=== PATIENT | male | born 1990 | race Caucasian/White ===

== ENCOUNTER → 2017-12-04 | Outpatient (CLI) | payer OTHER ==
[2017-12-04 14:34] LABS: HEMATOCRIT 39.3 % (39.0-51.0); HEMOGLOBIN 13.6 GM/DL (13.0-17.0); MEAN CORPUSCULAR HEMOGLOBIN 29.8 PG (27.0-34.0); MEAN CORPUSCULAR HGB CONC 34.6 % (32.0-36.0); MEAN PLATELET VOLUME 7.6 FL (7.0-11.0); PLATELET COUNT 328 TH/MM3 (150-450); RED BLOOD COUNT 4.56 MIL/MM3 (4.50-5.90); RED CELL DISTRIBUTION WIDTH 12.9 % (11.6-17.2); REVIEW FLAG FINAL; WHITE BLOOD COUNT 7.7 TH/MM3 (4.0-11.0)
== END ==
LOC: CPRE 14:06
DX: Z01.812 Encounter for preprocedural laboratory examination (principal); J34.2 Deviated nasal septum; J34.3 Hypertrophy of nasal turbinates; J32.0 Chronic maxillary sinusitis; J32.1 Chronic frontal sinusitis; J32.2 Chronic ethmoidal sinusitis; J32.3 Chronic sphenoidal sinusitis
CPT/HCPCS: 36415; 85027

== ENCOUNTER → 2017-12-05 | Day surgery (SDC) | payer OTHER ==
--- NOTE | 2017-12-04 17:08 | MH ---
cc: Pipo Hermosillo MD DATE OF ADMISSION: 12/05/2017 REASON FOR ADMISSION: A 27-year-old gentleman with chronic sinusitis and nasal obstruction, for nasal sinus surgery. PAST MEDICAL HISTORY: Unremarkable. PAST SURGICAL HISTORY: Unremarkable. REVIEW OF SYSTEMS, FAMILY HISTORY and SOCIAL HISTORY: Unremarkable. PHYSICAL EXAMINATION: GENERAL: A well-appearing patient. No acute distress noted. HEENT: Exam reveals septal deviation, turbinate hypertrophy, mucopurulent secretions, polyposis. LUNGS: Clear. HEART: Regular rate and rhythm. ABDOMEN: Soft and nontender. EXTREMITIES: Without cyanosis, clubbing or edema. NEUROLOGIC: Alert, oriented, nonfocal neurologic exam. IMPRESSION: Patient with chronic sinusitis and nasal obstruction, for nasal sinus surgery. I have instructed him in the method of surgery and possible complications including anesthetic complication, cardiac difficulty pulmonary difficulty, stroke or even , the surgical complications of bleeding, infection, risk of injury to the orbit including blindness and diplopia, risk of injury to brain including CSF leak, meningitis, brain abscess or even , recurrent polyposis, nose bleed, septal perforation, decreased sense of smell, dry nose. The patient appeared to agree, except to understand the above-mentioned risks and benefits. In addition, no guarantees or warranties regarding outcome were given. We will therefore proceed with surgery. MD BRIANNA Alcantara/SB , 04:47 PM , 05:06 PM
[~2017-12-05] VITALS: Ht 170.2 cm; Wt 70.4 kg
[~2017-12-05] MED LIST: *morphine SULFATE 4 MG/ML PERIprocedure ONLY ONE; ACETAMINOPHEN 1000 MG/100 ML 100 ML IV ONE; ACETAMINOPHEN/HYDROcodone 325 MG/7.5 MG TAB PO PRN; APREPITANT 40 MG CAP ONE; CHLORHEXIDINE GLUCONATE 2 % 1 PACK (2 CLOTHS) TOPICAL PRN; DEXAMETHASONE SOD PHOS 4 MG/ML VIAL IV ONE; DO NOT ADM ANY ANTICOAGULANT DRUGS PRN; EPINEPHrine HCL (1:1000) 30 MG/30 ML VIAL ONE; ESMOLOL HCL 100 MG/10 ML VIAL IV ONE; INSULIN HUMAN REGULAR 1,000 UNITS/10 ML VIAL SQ PRN; LACTATED RINGER'S 1000 ML IV PRN; LIDOCAINE 1%/EPINEPHrine 1:100,000 SOLN 30 ML VIAL ONE; LIDOCAINE HCL 1% PF 5 ML SYRINGE OTHER ONE; METOPROLOL TARTRATE 25 MG TAB PO PRN; MIDAZOLAM HCL 2 MG/2 ML VIAL ONE; MORPHINE SULFATE 4 MG/ML INJ IV PUSH PRN; ONDANSETRON HCL 4 MG/2 ML VIAL IV ONE; ONDANSETRON HCL 4 MG/2 ML VIAL IV PUSH PRN; POVIDONE IODINE 5% (ANTISEPSIS KIT) 4 APPLICATIONS EACH NARE PRN; PROPOFOL 200 MG/20 ML AMP IV ONE; SODIUM CHLORID 0.9% 500 ML IV PRN
[2017-12-05 09:58] VITALS: BP 136/87; PULSE 62; RESP 18; TEMP 97.6; O2SAT 100
--- NOTE | 2017-12-05 11:18 | MP ---
cc: Pipo Hremosillo MD DATE OF OPERATION: 12/05/2017 DATE OF OPERATION: 12/05/2017. POSTOPERATIVE DIAGNOSIS: Chronic sinusitis and nasal obstruction. PROCEDURE: 1. Open septal reconstruction. 2. Left endoscopic frontal sinusotomy. 3. Right endoscopic frontal sinusotomy. 4. Left endoscopic anterior-posterior ethmoidectomy. 5. Right endoscopic anterior-posterior ethmoidectomy. 6. Left endoscopic maxillary antrostomy with removal of tissue. 7. Right endoscopic maxillary antrostomy with removal of tissue. 8. Left and right inferior turbinectomy, submucous resection. ANESTHESIA: General anesthesia. ESTIMATED BLOOD LOSS: 150 mL. COMPLICATIONS: No complications. OPERATING SURGEON: Dr. Hermosillo OPERATION: Prepped and draped in the usual fashion. 1% Xylocaine with 1:100,000 epinephrine injected into the nasal septum, inferior turbinates, middle meatus bilaterally. 1:1000 adrenaline-soaked pledgets were placed and then removed. Under direct visualization and a mucoperichondrial incision was made in the left side of the nose, mucoperichondrial flap elevated, a significant amount of bone and cartilage removed to improve the nasal airway and reduce the nasal fracture. Mucoperichondrial flap reapproximated. Once this was achieved, attention was turned to the middle meatus on the right side, whereby a significant amount of polypoid tissue was removed with the microdebrider, the uncinectomy performed with a microdebrider, all under endoscopic visualization, the natural antrostomy identified and enlarged with the microdebrider and mucopurulent material and polypoid tissue suctioned and debrided from the opening. Anterior and posterior ethmoidectomy performed with microdebrider, taking care not to injure the orbital crocker,frontal sinus recess, dissection well. A Telfa splint was placed in the middle meatus on the right side. Attention then turned to the left side where even more significant polypoid tissue was noted on the left side in the middle meatus. The uncinectomy was performed. The polypoid tissue was removed with the microdebrider under endoscopic visualization, the natural antrostomy identified and enlarged and mucopurulent secretions suctioned under endoscopic visualization. Anterior-posterior ethmoidectomy and frontal sinus recess dissection performed with the microdebrider under endoscopic visualization as well. Telfa splints were placed in the middle meatus. Using a Coblator probe with multiple insertions, submucous resection and reduction of inferior turbinate was performed bilaterally and bilateral NasoPore dressing placed. The patient tolerated the procedure well. MD BRIANNA Alcantara/JAQUELIN , 10:50 AM , 11:17 AM
== END | disposition home or self-care (01) ==
LOC: HSDC 05:22
PROVIDERS: ATTEND Specialist
DX: J34.2 Deviated nasal septum (principal); J34.3 Hypertrophy of nasal turbinates; J32.0 Chronic maxillary sinusitis; J32.1 Chronic frontal sinusitis; J32.2 Chronic ethmoidal sinusitis
CPT/HCPCS: 00160; 21335; 30140; 31253; 31267; J0131; J0171; J1100; J2250; J2270; J2405; J3010; J7120; J8501